=== PATIENT | male | born 1960 | race Caucasian/White ===

== ENCOUNTER 2016-05-01 07:54 | Day surgery (SDC) | payer BC ==
[2016-05-01 08:03] VITALS: BP 117/78
[2016-05-01] MEDS ORDERED: Lactated Ringers 1,000 ML IV SCH (08:30)
[2016-05-01] MEDS ORDERED: Lidocaine 1% 30 ML SDV ONE (08:47)
[2016-05-01] MEDS ORDERED: Gadobenate Dimeglumine 529 MG/ML 15 ML SDV IVPUSH ONE (13:25)
--- NOTE | 2016-05-02 09:04 | CONS ---
SERVICE DATE: 05/01/2016 CHIEF COMPLAINT: Right gluteal mass. HISTORY OF PRESENT ILLNESS: Mr. Celestine Gallardo is a 56-year-old male, who I had evaluated in the past with an odd kind of right gluteal mass. I had seen him last time here and had ordered an ultrasound. I have reviewed the ultrasound today and I have actually reviewed it with Dr. Santoyo that there appears to be some sort of an odd shaped vascular supply to this area which is a little bit inconsistent with a lipoma. I explained this to the patient. Our original plan today was to go ahead and do an excisional biopsy of this, but because of the findings of the ultrasound what we are going to do is to go ahead and have him get an MRI of that area here today. He already has IV which we are going to simply Hep-Lock. The appointment is set for 02:00 p.m., and once we have that read and evaluated, we will be able to entertain with the next step should be. I clearly explained this to the patient and his . They seem pleased. I will see him again tomorrow, and once I have reviewed the MRI and will see where we go from here. [facility] /[id number]
[2016-05-02] MEDS ORDERED: Lidocaine 1% 30 ML SDV INJECT ONE (09:18)
== END 2016-05-01 09:40 | disposition home or self-care (01) ==
LOC: DL.SDS 07:54
PROVIDERS: ATTEND Surgery
DX: R22.2 Localized swelling, mass and lump, trunk (principal); Z53.8 Procedure and treatment not carried out for other reasons; Z88.0 Allergy status to penicillin; Z91.041 Radiographic dye allergy status
CPT/HCPCS: 36415; 72197; 82565; A9577; J7120

== ENCOUNTER 2016-05-02 07:47 | Day surgery (SDC) | payer BC ==
[2016-05-02] MEDS ORDERED: Lactated Ringers 1,000 ML IV SCH (08:00)
[2016-05-02] MEDS ORDERED: Lidocaine 1% 30 ML SDV ONE (08:54)
[2016-05-02] MEDS ORDERED: Lidocaine 1% 30 ML SDV INJECT ONE ×2 (09:18→13:23)
[2016-05-02 10:43] VITALS: BP 130/90
--- NOTE | 2016-05-02 13:32 | OR ---
DATE: 05/02/2016 PREOPERATIVE DIAGNOSIS: Right gluteal cyst. POSTOPERATIVE DIAGNOSIS: Right gluteal cyst. PROCEDURE: Excisional biopsy. ANESTHESIA: 1% lidocaine. ESTIMATED BLOOD LOSS: Less than 2 mL. REPLACEMENT: Crystalloid. BRIEF HISTORY: This is a man who has felt this kind of weird mass on his right infragluteal area. We did an ultrasound of it and appeared to have a vascular area. We subsequently performed an MRI which did not confirm that and actually basically looked like a cyst. I then had the opportunity to discuss the risks, benefits of an excisional biopsy. He agreed to proceed. The area was marked preoperatively. The patient was taken to the operating room, and he was placed on his left side down with his knee flexed. We prepped the right gluteal area without difficulty. Where I had marked, which was probably 6 cm from the midline was an area that I could palpate that was about 2.5 cm. A simple transverse incision was done over the skin and subcutaneous tissue after I injected and infiltrated the area with lidocaine. Interesting enough, as I cut down I could actually see that there was z like opening to the skin. I was able then to excise the area in its completeness and is consistent more with a sebaceous cyst. I then irrigated the wound and then placed my digit in it, and there was another area that felt a little thickened perhaps from chronic inflammation which I also excised and put in the same specimen cup. Hemostasis was achieved using electrocautery, and then I simply reapproximated the skin edges using 3-0 nylon in an interrupted mattress fashion. A Band-Aid was applied. He tolerated the procedure well. PLAN: The plan will be that he should come back to the office on Sunday for me to do a wound check and also hopefully pathology report will be here at that time. [facility] [place][id number]
== END 2016-05-02 10:30 | disposition home or self-care (01) ==
LOC: UNDOADMIN 07:47 → DL.MS 07:47 → DL.SDS 07:47 → EDSTATUS 09:30 → DL.SDS 10:30 → UNDODISIN 10:30
PROVIDERS: ATTEND Surgery
DX: M60.28 Foreign body granuloma of soft tissue, not elsewhere classified, other site (principal); Z18.9 Retained foreign body fragments, unspecified material; Z91.041 Radiographic dye allergy status; Z79.899 Other long term (current) drug therapy; F17.210 Nicotine dependence, cigarettes, uncomplicated; Z98.890 Other specified postprocedural states
CPT/HCPCS: 11404; J7120

== ENCOUNTER 2017-06-13 12:03 | Emergency (ER) | payer OTHER, BC ==
--- NOTE | 2017-06-13 12:45 | EDM.PDOC ---
ED HPI GENERAL MEDICAL PROBLEM - General Chief Complaint: Back Pain or Injury Stated Complaint: HEAVY LIFTING Time Seen by Provider: 06/13/17 12:45 Source of Information: Reports: Patient, RN History Limitations: Reports: No Limitations - History of Present Illness INITIAL COMMENTS - FREE TEXT/NARRATIVE: Pt with Hx of chronic lumbar pain, DDD, and intermittent Rt leg radicular pain presents to ER with c/o sudden exacerbation of low back pain with muscle spasms , and pain shooting through Rt buttock into Rt leg out to the foot since lifting a trampoline box while working at [employer] yesterday. Last , June 07 pt had "epidural steroid injection" to L4/L5 by Dr. Tran. Pt felt improved after the injections, but still had occasional pain shooting through the Rt leg to the foot. He denies loss of bowel or bladder control, saddle area numbness, motor weakness, any falls or high impact injury. 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(s) (gabapentin) Lower Back Pain Score (Numeric/FACES): 5 - Related Data Allergies Allergy/AdvReac Type Severity Reaction Status Date / Time Penicillins Allergy Rash Verified 05/02/16 08:16 EES Allergy Cannot Uncoded 05/02/16 08:16 Remember IV CONTRAST DYE Allergy Rash Uncoded 05/02/16 08:16 Home Meds: Home Meds Gabapentin [Neurontin] 100 mg PO TID PRN 04/28/16 [History] Naproxen Sodium [Aleve] 440 mg PO BID PRN 04/28/16 [History] Hydrocodone/Acetaminophen [Hydrocodon-Acetaminophen 5-325] 1 tab PO BID [History] Past Medical History HEENT History: Reports: Impaired Vision, Other (See Below) Other HEENT History: CORRECTIVE LENS PRN Cardiovascular History: Reports: None Respiratory History: Reports: None Gastrointestinal History: Reports: None Genitourinary History: Reports: None Musculoskeletal History: Reports: Back Pain, Chronic, Fracture, Gout, Other ( See Below) Other Musculoskeletal History: RIGHT WRIST FRACTURE. FRACTURED MANDIABLE - S/P PLATED. FRACTURED RIGHT ANKLE X2 - CASTED AND THEN INJURED LATER AND RESET. FRACTURED RIGHT RIBS Neurological History: Reports: None Psychiatric History: Reports: None Endocrine/Metabolic History: Reports: None Hematologic History: Reports: None Immunologic History: Reports: None Oncologic (Cancer) History: Reports: None Dermatologic History: Reports: None - Infectious Disease History Infectious Disease History: Reports: Chicken Pox - Past Surgical History HEENT Surgical History: Reports: Myringotomy w Tube(s), Tonsillectomy Musculoskeletal Surgical History: Reports: Other (See Below) Social & Family History - Family History HEENT: Reports: None Cardiac: Reports: [place] Respiratory: Reports: None GI: Reports: Cirrhosis : Reports: None OBGYN: Reports: None Musculoskeletal: Reports: None Neurological: Reports: None Psychiatric: Reports: None Endocrine/Metabolic: Reports: None Hematologic: Reports: None Immunologic: Reports: None Dermatologic: Reports: None Oncologic: Reports: None - Tobacco Use Smoking Status *Q: Current Every Day Smoker Used Tobacco, but Quit: No Second Hand Smoke Exposure: Yes - Caffeine Use Caffeine Use: Reports: Coffee Other Caffeine Use: AVERAGE OF 12 OR MORE DAILY - Recreational Drug Use Recreational Drug Use: No Drug Use in Last 12 Months: No - Living Situation & Occupation Living situation: Reports: , with Spouse Occupation: Employed ED ROS GENERAL - Review of Systems Review Of Systems: ROS reveals no pertinent complaints other than HPI. ED EXAM,LOWER BACK PAIN/INJURY - Physical Exam Exam: See Below Exam Limited By: No Limitations General Appearance: Alert, WD/WN, No Apparent Distress Head: Atraumatic, Normocephalic Neck: Normal Inspection Respiratory/Chest: No Respiratory Distress GI/Abdominal: Normal Bowel Sounds, Soft, Non-Tender Back Exam: Decreased Range of Motion (lumbar, L/S region), Muscle Spasm (lumbar region), Paraspinal Tenderness. No: CVA Tenderness (L), CVA Tenderness (R), Vertebral Tenderness Extremities: Normal Inspection, Normal Range of Motion, Non-Tender, No Pedal Edema, Normal Capillary Refill Neurological: Alert, Normal Mood/Affect, Normal Dorsiflexion, CN II-XII Intact, Normal Plantar Flexion, No Motor/Sensory Deficits, Oriented x 3, Other ( Antalgic gait due to pain.) Psychiatric: Normal Affect, Normal Mood Skin Exam: Warm, Dry, Intact, Normal Color, No Rash Course - Vital Signs Last Recorded V/S: Last Vital Signs Temp 37.1 C 06/13/17 12:33 Pulse 88 06/13/17 12:33 Resp 16 06/13/17 12:33 BP 122/85 06/13/17 12:33 Pulse Ox 98 06/13/17 12:33 - Orders/Labs/Meds Meds: Medications Discontinued Medications Generic Name Dose Route Start Last Admin Trade Name Ernesto PRN Reason Stop Dose Admin Hydrocodone Bitart/Acetaminophen 1 tab 06/13/17 13:03 Dillon 325-10 Mg PO 06/13/17 13:04 ONETIME ONE Ketorolac Tromethamine 60 mg 06/13/17 13:00 Toradol IM 06/13/17 13:01 ONETIME ONE Orphenadrine Citrate 60 mg 06/13/17 13:02 Norflex IM 06/13/17 13:03 ONETIME ONE Departure - Departure Time of Disposition: 13:09 Disposition: Home, Self-Care 01 Condition: Good Clinical Impression: Acute exacerbation of chronic low back pain, Lumbar back pain with radiculopathy affecting right lower extremity - Discharge Information Instructions: Back Pain, Adult, [id number], Lumbosacral Radiculopathy, Chronic Back Pain Forms: ED Department Discharge Additional Instructions: Rx: Hydrocodone APAP 10mg/325mg *Do not drive or work while under the influence of this medication. Rx: Gabapentin 300mg *Do not drive or work while under the influence of this medication. Rx: Decadron (Dexamethasone) 4mg *Take with food. Off work through June 15. Discuss return to work and activity restrictions with your doctor. Rest, light activity as tolerated. Avoid bending, twisting, lifting, or pulling. Follow up in clinic June 15 as scheduled.
[2017-06-13 12:51] VITALS: BP 122/85
[2017-06-13] MEDS ORDERED: Ketorolac 30 MG/ML SDV IM ONE (13:00)
[2017-06-13] MEDS ORDERED: Acetaminophen/HYDROcodone 325-10 MG Tab PO ONE (13:03)
== END 2017-06-13 13:40 | disposition home or self-care (01) ==
LOC: DL.ED 12:03
DX: M54.16 Radiculopathy, lumbar region (principal); F17.210 Nicotine dependence, cigarettes, uncomplicated; Z91.041 Radiographic dye allergy status; Z88.0 Allergy status to penicillin
CPT/HCPCS: 96372; 99283; A9270; J1885; J2360

== ENCOUNTER 2017-07-21 19:53 | Emergency (ER) | payer BC ==
[2017-07-21 22:17] VITALS: BP 118/79
[2017-07-22] MEDS ORDERED: Ketorolac 30 MG/ML SDV IM ONE (00:14)
--- NOTE | 2017-07-22 00:19 | EDM.PDOC ---
ED [facility] GENERAL MEDICAL PROBLEM - General Chief Complaint: Back Pain or Injury Stated Complaint: LOWER BACK PAIN [id number] Time Seen by Provider: 07/22/17 00:10 Source of Information: Reports: Patient History Limitations: Reports: No Limitations - History of Present Illness INITIAL COMMENTS - FREE TEXT/NARRATIVE: This 57 yo male patient reports to the ED with increased lower back pain and sciatica to his right leg. The patient reports his pain has been worse today due to mowing lawns. The patient reports that he has surgery scheduled for August 24. The patient had an MRI this week with Dr. Ruiz and has taken his [place] with no symptom relief. The patient reports the injections that he got in the ED the last time her was here helped with his symptoms. The patient reports that he was supposed to work at [employer], but did not go to work due to his back pain. 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 Right Lower Back Pain Score (Numeric/FACES): 4 - Related Data Allergies Allergy/AdvReac Type Severity Reaction Status Date / Time Penicillins Allergy Rash Verified 07/21/17 22:17 EES Allergy Cannot Uncoded 07/21/17 22:17 Remember IV CONTRAST DYE Allergy Rash Uncoded 07/21/17 22:17 Home Meds: Home Meds Gabapentin [Neurontin] 100 mg PO TID PRN 04/28/16 [History] Naproxen Sodium [Aleve] 440 mg PO BID PRN 04/28/16 [History] Hydrocodone/Acetaminophen [Hydrocodon-Acetaminophen 5-325] 1 tab PO BID [History] Past Medical History HEENT History: Reports: Impaired Vision, Other (See Below) Other HEENT History: CORRECTIVE LENS PRN Cardiovascular History: Reports: None Respiratory History: Reports: None Gastrointestinal History: Reports: None Genitourinary History: Reports: None Musculoskeletal History: Reports: Back Pain, Chronic, Fracture, Gout, Other ( See Below) Other Musculoskeletal History: RIGHT WRIST FRACTURE. FRACTURED MANDIABLE - S/P PLATED. FRACTURED RIGHT ANKLE X2 - CASTED AND THEN INJURED LATER AND RESET. FRACTURED RIGHT RIBS Neurological History: Reports: None Psychiatric History: Reports: None Endocrine/Metabolic History: Reports: None Hematologic History: Reports: None Immunologic History: Reports: None Oncologic (Cancer) History: Reports: None Dermatologic History: Reports: None - Infectious Disease History Infectious Disease History: Reports: Chicken Pox - Past Surgical History Head Surgeries/Procedures: Reports: None HEENT Surgical History: Reports: Myringotomy w Tube(s), Tonsillectomy Musculoskeletal Surgical History: Reports: Other (See Below) Social & Family History - Family History HEENT: Reports: None Cardiac: Reports: [place] Respiratory: Reports: None GI: Reports: Cirrhosis : Reports: None OBGYN: Reports: None Musculoskeletal: Reports: None Neurological: Reports: None Psychiatric: Reports: None Endocrine/Metabolic: Reports: None Hematologic: Reports: None Immunologic: Reports: None Dermatologic: Reports: None Oncologic: Reports: None - Tobacco Use Smoking Status *Q: Current Every Day Smoker Years of Tobacco use: 20 Packs/Tins Daily: 20 - Caffeine Use Caffeine Use: Reports: Coffee Other Caffeine Use: AVERAGE OF 12 OR MORE DAILY - Recreational Drug Use Recreational Drug Use: No - Living Situation & Occupation Living situation: Reports: , with Spouse Occupation: Employed ED ROS GENERAL - Review of Systems Review Of Systems: ROS reveals no pertinent complaints other than HPI. ED EXAM,LOWER BACK PAIN/INJURY - Physical Exam Exam: See Below Exam Limited By: No Limitations General Appearance: Alert, WD/WN, Moderate Distress Eye Exam: Bilateral Eye: EOMI, Normal Inspection, PERRL Ears: Normal External Exam, Normal Canal, Hearing Grossly Normal, Normal TMs Nose: Normal Inspection, Normal Mucosa, No Blood Throat/Mouth: Normal Inspection, Normal Lips, Normal Teeth, Normal Gums, Normal Oropharynx, Normal Voice, No Airway Compromise Head: Atraumatic, Normocephalic Neck: Normal Inspection, Supple, Non-Tender, Full Range of Motion Respiratory/Chest: No Respiratory Distress, Lungs Clear, Normal Breath Sounds, No Accessory Muscle Use, Chest Non-Tender Cardiovascular: Normal Peripheral Pulses, Regular Rate, Rhythm, No Edema, No Gallop, No JVD, No Murmur, No Rub GI/Abdominal: Normal Bowel Sounds, Soft, Non-Tender, No Organomegaly, No Distention, No Abnormal Bruit, No Mass (Male) Exam: Deferred Rectal (Males) Exam: Deferred Back Exam: Decreased Range of Motion, Paraspinal Tenderness (right side ) Extremities: Normal Inspection, Normal Range of Motion, Non-Tender, No Pedal Edema, Normal Capillary Refill Neurological: Alert, Normal Mood/Affect, Normal Dorsiflexion, CN II-XII Intact, Normal Plantar Flexion, Normal Gait, Normal Reflexes, No Motor/Sensory Deficits , Oriented x 3 Psychiatric: Normal Affect, Normal Mood Skin Exam: Warm, Dry, Intact, Normal Color, No Rash Lymphatic: No Adenopathy Course - Vital Signs Last Recorded V/S: Last Vital Signs Temp 36.6 C 07/21/17 22:06 Pulse 71 07/21/17 22:06 Resp 18 07/21/17 22:06 BP 118/79 07/21/17 22:06 Pulse Ox 98 07/21/17 22:06 Departure - Departure Time of Disposition: 00:19 Disposition: Home, Self-Care 01 Condition: Fair Clinical Impression: Acute exacerbation of chronic low back pain Sciatica Qualifiers: Laterality: right Qualified Code(s): M54.31 - Sciatica, right side - Discharge Information Instructions: Chronic Back Pain Care Plan Goals: The patient was advised of the examination while in the ED. The patient was given injections of Toradol and Norflex while in the ED. The patient was encouraged to continue to take his regular medications as prescribed. If the patient has any additional symptoms or concerns, the patient should follow-up with his primary care facility or return to the emergency department.
== END 2017-07-22 00:31 | disposition home or self-care (01) ==
LOC: DL.ED 19:53
DX: M54.41 Lumbago with sciatica, right side (principal); G89.29 Other chronic pain; F17.210 Nicotine dependence, cigarettes, uncomplicated; Z88.0 Allergy status to penicillin; Z91.041 Radiographic dye allergy status; Z79.899 Other long term (current) drug therapy
CPT/HCPCS: 96372; 99283; J1885; J2360

== ENCOUNTER 2017-08-04 23:23 | Emergency (ER) | payer BC ==
[2017-08-05] MEDS ORDERED: Clindamycin HCl 150 MG Cap PO ONE (00:03)
[2017-08-05] MEDS ORDERED: Ketorolac 30 MG/ML SDV IM ONE (00:03)
--- NOTE | 2017-08-05 00:14 | EDM.PDOC ---
ED HPI GENERAL MEDICAL PROBLEM - General Chief Complaint: Back Pain or Injury Stated Complaint: BACK AND L SHOULDER PAIN [id number] Time Seen by Provider: 08/05/17 00:08 Source of Information: Reports: Patient History Limitations: Reports: No Limitations - History of Present Illness INITIAL COMMENTS - FREE TEXT/NARRATIVE: c/o exac LBP with sciatica, states toradol + norflex IM work good. been Dx with herniated L4-S1 and pending approval from [place]. also right upper molar flared up and has appt with DDS next week. 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, NSAIDS Lower Back Pain Score (Numeric/FACES): 4 - Related Data Allergies Allergy/AdvReac Type Severity Reaction Status Date / Time Penicillins Allergy Rash Verified 08/04/17 23:34 EES Allergy Cannot Uncoded 08/04/17 23:34 Remember IV CONTRAST DYE Allergy Rash Uncoded 08/04/17 23:34 Home Meds: Home Meds Gabapentin [Neurontin] 100 mg PO TID PRN 04/28/16 [History] Naproxen Sodium [Aleve] 440 mg PO BID PRN 04/28/16 [History] Hydrocodone/Acetaminophen [Hydrocodon-Acetaminophen 5-325] 1 tab PO BID [History] Acetaminophen [Tylenol] 1,500 mg PO ASDIRECTED 08/04/17 [History] Past Medical History HEENT History: Reports: Impaired Vision, Other (See Below) Other HEENT History: CORRECTIVE LENS PRN Cardiovascular History: Reports: None Respiratory History: Reports: None Gastrointestinal History: Reports: None Genitourinary History: Reports: None Musculoskeletal History: Reports: Back Pain, Chronic, Fracture, Gout, Other ( See Below) Other Musculoskeletal History: RIGHT WRIST FRACTURE. FRACTURED MANDIABLE - S/P PLATED. FRACTURED RIGHT ANKLE X2 - CASTED AND THEN INJURED LATER AND RESET. FRACTURED RIGHT RIBS Neurological History: Reports: None Psychiatric History: Reports: None Endocrine/Metabolic History: Reports: None Hematologic History: Reports: None Immunologic History: Reports: None Oncologic (Cancer) History: Reports: None Dermatologic History: Reports: None - Infectious Disease History Infectious Disease History: Reports: Chicken Pox - Past Surgical History Head Surgeries/Procedures: Reports: None HEENT Surgical History: Reports: Myringotomy w Tube(s), Tonsillectomy Musculoskeletal Surgical History: Reports: Other (See Below) Social & Family History - Family History Family Medical History: Noncontributory HEENT: Reports: None Cardiac: Reports: [place] Respiratory: Reports: None GI: Reports: Cirrhosis : Reports: None OBGYN: Reports: None Musculoskeletal: Reports: None Neurological: Reports: None Psychiatric: Reports: None Endocrine/Metabolic: Reports: None Hematologic: Reports: None Immunologic: Reports: None Dermatologic: Reports: None Oncologic: Reports: None - Tobacco Use Smoking Status *Q: Current Every Day Smoker Years of Tobacco use: 25 Packs/Tins Daily: 1 - Caffeine Use Caffeine Use: Reports: Coffee Other Caffeine Use: AVERAGE OF 12 OR MORE DAILY - Recreational Drug Use Recreational Drug Use: No - Living Situation & Occupation Living situation: Reports: , with Spouse Occupation: Employed ED ROS GENERAL - Review of Systems Review Of Systems: ROS reveals no pertinent complaints other than HPI. ED EXAM,LOWER BACK PAIN/INJURY - Physical Exam Exam: See Below Exam Limited By: No Limitations General Appearance: Alert, WD/WN, Mild Distress, Other (discomfort) Ears: Hearing Grossly Normal Throat/Mouth: Normal Voice, No Airway Compromise, Other (dental abscess) Head: Atraumatic Neck: Non-Tender, Full Range of Motion Respiratory/Chest: No Respiratory Distress Cardiovascular: Regular Rate, Rhythm GI/Abdominal: Soft, Non-Tender Back Exam: Muscle Spasm, Paraspinal Tenderness, Other (right sciatica) Neurological: Alert, Normal Mood/Affect, No Motor/Sensory Deficits, Other (gait limited to pain) Psychiatric: Normal Affect, Normal Mood Skin Exam: Warm, Dry, Normal Color Lymphatic: No Adenopathy Course - Vital Signs Last Recorded V/S: Last Vital Signs Temp 36.6 C 08/05/17 00:41 Pulse 66 08/05/17 00:41 Resp 14 08/05/17 00:41 BP 115/84 08/05/17 00:41 Pulse Ox 98 08/05/17 00:41 - Orders/Labs/Meds Meds: Medications Discontinued Medications Generic Name Dose Route Start Last Admin Trade Name Freq PRN Reason Stop Dose Admin Clindamycin HCl 300 mg 08/05/17 00:03 08/05/17 00:11 Cleocin PO 08/05/17 00:04 300 mg ONETIME ONE Administration Ketorolac Tromethamine 30 mg 08/05/17 00:03 08/05/17 00:12 Toradol IM 08/05/17 00:04 30 mg ONETIME ONE Administration Orphenadrine Citrate 60 mg 08/05/17 00:15 08/05/17 00:15 Norflex IM 60 mg Q12H QI Administration - Re-Assessments/Exams Free Text/Narrative Re-Assessment/Exam: 08/05/17 00:39 re-exam; denies itch no rash s/p clinda, states he was given a pill thinks had ECG written on it when he had chicken pox at 11y/o and got worse so was told to avoid that pill but he is unsure of exactly what the pill was. Departure - Departure Time of Disposition: 00:45 Disposition: Home, Self-Care 01 Condition: Good Clinical Impression: Lumbar back pain with radiculopathy affecting right lower extremity, Tooth abscess Sciatica Qualifiers: Laterality: right Qualified Code(s): M54.31 - Sciatica, right side - Discharge Information Instructions: Dental Abscess, [id number] Forms: ED Department Discharge Additional Instructions: 1) avoid bending lifting straining 2) avoid sodas candies 3) see dentist rx given; clindamycin 150mg qid x 40 vicodin 5/325mg tid prn x 6
[2017-08-05 00:48] VITALS: BP 115/84
== END 2017-08-05 00:47 | disposition home or self-care (01) ==
LOC: DL.ED 23:23
DX: M54.16 Radiculopathy, lumbar region (principal); M54.31 Sciatica, right side; K04.7 Periapical abscess without sinus; F17.210 Nicotine dependence, cigarettes, uncomplicated; Z88.0 Allergy status to penicillin; Z91.041 Radiographic dye allergy status
CPT/HCPCS: 96372; 99282; A9270; J1885; J2360

== ENCOUNTER 2020-07-18 16:29 | Emergency (ER) | payer BC ==
[2020-07-18 16:49] VITALS: BP 132/82; PULSE 74
[2020-07-18] MEDS ORDERED: Lidocaine 5% Oint 35.44 GM Tube TOP ONE (17:05)
[2020-07-18] MEDS ORDERED: Ketorolac 30 MG/ML SDV IM ONE (17:06)
[2020-07-18] MEDS ORDERED: Orphenadrine 60 MG/2 ML Inj IM ONE (17:06)
--- NOTE | 2020-07-18 17:27 | CR ---
PROCEDURE INFORMATION: Exam: XR Right Ribs with PA Chest Exam date and time: 07/18/2020 4:45 PM Age: 60 years old Clinical indication: Other: Pain; Additional info: Right chest wall/rib injury TECHNIQUE: Imaging protocol: XR Right ribs with PA chest. Views: 3 views COMPARISON: No relevant prior studies available. FINDINGS: Lungs: Clear lungs bilaterally. Pleural spaces: No pleural effusion. No pneumothorax. Heart/Mediastinum: Unremarkable. No cardiomegaly. Bones/joints: Nondisplaced fractures of the posterolateral right 5th and 6th ribs. IMPRESSION: Nondisplaced fractures of the posterolateral right 5th and 6th ribs.
--- NOTE | 2020-07-18 17:29 | EDM.PDOC ---
Scribed by Elvira Wall 07/18/20 1097 for Janes Mcclellan MD ED HPI GENERAL MEDICAL PROBLEM - General Chief Complaint: General Stated Complaint: INJURY TO RIGH UPPER RIBS Time Seen by Provider: 07/18/20 16:36 Source of Information: Reports: Patient, Old Records, RN, RN Notes Reviewed History Limitations: Reports: No Limitations - History of Present Illness INITIAL COMMENTS - FREE TEXT/NARRATIVE: Patient presents to ED by POV stating that last night, his kids were throwing the ball and the dog fell into him. He fell into a wall and hit the right rib area. It didn't hurt much then. Today he has increased pain and feels like pain with fluid underneath the skin. He took gabapentin, Tylenol 500mg, muscle relaxer and a Hydrocodone at 11 A.M. but didn't have much relief. Denies shortness of breath or difficulty breathing. Onset: Sudden Onset Date: 07/17/20 Duration: Constant Location: Reports: Other (rib area) Quality: Reports: Ache Severity: Severe Improves with: Reports: Immobilization Worsens with: Reports: Breathing, Movement Associated Symptoms: Reports: No Other Symptoms Right Trunk Pain Score (Numeric/FACES): 10 - Related Data Allergies Allergy/AdvReac Type Severity Reaction Status Date / Time erythromycin base Allergy Cannot Verified 01/08/19 11:07 Remember influenza virus vaccine, Allergy Other Verified 01/08/19 11:07 live atten levofloxacin [From Levaquin] Allergy Diarrhea Verified 01/08/19 11:07 loperamide [From Imodium A-D] Allergy Hives Verified 01/08/19 11:07 Penicillins Allergy Rash Verified 01/08/19 11:07 propoxyphene Allergy Other Verified 01/08/19 11:07 IV CONTRAST DYE Allergy Rash Uncoded 01/08/19 11:07 Home Meds: Home Meds Gabapentin [Neurontin] 300 mg PO TID PRN 04/28/16 [History] Naproxen Sodium [Aleve] 440 mg PO BID PRN 04/28/16 [History] Hydrocodone/Acetaminophen [Hydrocodone-Acetamin 5-325 mg] 1 tab PO BID 05/02/16 [History] Acetaminophen [Tylenol] 650 mg PO ASDIRECTED 08/04/17 [History] Ibuprofen 200 mg PO DAILY 01/08/19 [History] atorvaSTATin [Lipitor] 20 mg PO DAILY 01/08/19 [History] Past Medical History HEENT History: Reports: Impaired Vision, Other (See Below) Other HEENT History: CORRECTIVE LENS PRN Cardiovascular History: Reports: None Respiratory History: Reports: None Gastrointestinal History: Reports: None Genitourinary History: Reports: None Musculoskeletal History: Reports: Back Pain, Chronic, Fracture, Gout, Other (See Below) Other Musculoskeletal History: RIGHT WRIST FRACTURE. FRACTURED MANDIABLE - S/P PLATED. FRACTURED RIGHT ANKLE X2 - CASTED AND THEN INJURED LATER AND RESET. FRACTURED RIGHT RIBS Neurological History: Reports: None Psychiatric History: Reports: None Endocrine/Metabolic History: Reports: None Hematologic History: Reports: None Immunologic History: Reports: None Oncologic (Cancer) History: Reports: None Dermatologic History: Reports: None - Infectious Disease History Infectious Disease History: Reports: Chicken Pox - Past Surgical History Head Surgeries/Procedures: Reports: None HEENT Surgical History: Reports: Myringotomy w Tube(s), Tonsillectomy Cardiovascular Surgical History: Reports: None Respiratory Surgical History: Reports: None GI Surgical History: Reports: None Male Surgical History: Reports: None Endocrine Surgical History: Reports: None Neurological Surgical History: Reports: None Musculoskeletal Surgical History: Reports: Other (See Below) Other Musculoskeletal Surgeries/Procedures:: HX OF FRACTURED MANDIBLE, PLATED IN 2 PLACES. RIGHT ROTATOR CUFF REPAIR Oncologic Surgical History: Reports: None Dermatological Surgical History: Reports: None Social & Family History - Family History Family Medical History: No Pertinent Family History HEENT: Reports: None Cardiac: Reports: IN Respiratory: Reports: None GI: Reports: Cirrhosis : Reports: None OBGYN: Reports: None Musculoskeletal: Reports: None Neurological: Reports: None Psychiatric: Reports: None Endocrine/Metabolic: Reports: None Hematologic: Reports: None Immunologic: Reports: None Dermatologic: Reports: None Oncologic: Reports: None - Caffeine Use Caffeine Use: Reports: Coffee, Energy Drinks, Soda Other Caffeine Use: AVERAGE OF 12 OR MORE DAILY - Living Situation & Occupation Living situation: Reports: , with Spouse Occupation: Employed ED ROS GENERAL - Review of Systems Review Of Systems: Comprehensive ROS is negative, except as noted in HPI. ED EXAM, GENERAL - Physical Exam Exam: See Below Exam Limited By: No Limitations General Appearance: Alert, WD/WN, No Apparent Distress Throat/Mouth: Normal Lips, Normal Voice, No Airway Compromise Head: Atraumatic, Normocephalic Neck: Normal Inspection, Supple, Non-Tender, Full Range of Motion Respiratory/Chest: No Respiratory Distress, Lungs Clear, No Accessory Muscle Use, Decreased Breath Sounds, Splinting, Other (Right lateral chest wall tenerness with no visible bruising, swelling, or deformity.). No: Crackles, Rales, Rhonchi, Wheezing Cardiovascular: Normal Peripheral Pulses, Regular Rate, Rhythm, No Edema, No Gallop, No JVD, No Murmur, No Rub GI/Abdominal: Normal Bowel Sounds, Soft, Non-Tender Back Exam: Decreased Range of Motion (Chronic), Other (Old surgical scar at midline lumbar). No: Vertebral Tenderness Extremities: Normal Inspection, Normal Range of Motion, Non-Tender, Normal Capillary Refill, No Pedal Edema Neurological: Alert, Oriented, No Motor/Sensory Deficits Psychiatric: Normal Mood Skin Exam: Warm, Dry, Intact, Normal Color, No Rash Course - Vital Signs Last Recorded V/S: Last Vital Signs Temp 98.7 F 07/18/20 16:44 Pulse 74 07/18/20 16:44 Resp 18 07/18/20 16:44 BP 132/82 07/18/20 16:44 Pulse Ox 95 07/18/20 16:44 - Orders/Labs/Meds Meds: Medications Discontinued Medications Generic Name Dose Route Start Last Admin Trade Name Nadirq PRN Reason Stop Dose Admin Ketorolac Tromethamine 60 mg 07/18/20 17:06 07/18/20 17:16 Ketorolac 30 Mg/Ml Sdv IM 07/18/20 17:07 60 mg ONETIME ONE Administration Lidocaine HCl 30 gm 07/18/20 17:05 07/18/20 17:15 Lidocaine 5% Oint 35.44 Gm Tube TOP 07/18/20 17:06 1 dose ONETIME ONE Administration Orphenadrine Citrate 60 mg 07/18/20 17:06 07/18/20 17:17 Orphenadrine 60 Mg/2 Ml Inj IM 07/18/20 17:07 60 mg ONETIME ONE Administration Departure - Departure Time of Disposition: 17:40 Disposition: Home, Self-Care 01 Condition: Good Clinical Impression: Right rib fracture Qualifiers: Encounter type: initial encounter Rib fracture type: multiple ribs Fracture type: closed Qualified Code(s): S22.41XA - Multiple fractures of ribs, right side, initial encounter for closed fracture Contusion of right chest wall Qualifiers: Encounter type: initial encounter Qualified Code(s): S20.211A - Contusion of right front wall of thorax, initial encounter - Discharge Information *PRESCRIPTION DRUG MONITORING PROGRAM REVIEWED*: No *COPY OF PRESCRIPTION DRUG MONITORING REPORT IN PATIENT JOSEPH: No Instructions: Contusion, Chest Wall Pain Forms: ED Department Discharge Additional Instructions: Rx: Cyclobenzaprine 10mg Lidocaine Ointment 5% Ice pack to areas of pain as needed. Take your regular pain medications as prescribed. Follow up in clinic if not improving in the next week to 10 days as expected. Sepsis Event Note (ED) - Focused Exam Vital Signs: Vital Signs Temp Pulse Resp BP Pulse Ox 07/18/20 16:44 98.7 F 74 18 132/82 95 I have read and agree with the documentation that has been completed regarding this visit. By signing this record, I attest that the documentation was completed in my physical presence and is an accurate record of the encounter.
== END 2020-07-18 17:37 | disposition home or self-care (01) ==
LOC: DL.ED 16:29
DX: S22.41XA Multiple fractures of ribs, right side, initial encounter for closed fracture (principal); Z88.1 Allergy status to other antibiotic agents; Z88.7 Allergy status to serum and vaccine; Z88.8 Allergy status to other drugs, medicaments and biological substances; Z91.041 Radiographic dye allergy status; Z79.899 Other long term (current) drug therapy; W22.8XXA Striking against or struck by other objects, initial encounter
CPT/HCPCS: 71101-RT; 96372; 99283; 99283-25; A9270-GY; J1885; J2360